=== PATIENT | female | born 1990 | race Caucasian/White ===

== ENCOUNTER 2017-08-24 04:53 | Inpatient (IN) | payer OTHER, SELFPAY | END 2017-08-26 13:00 | disposition home or self-care (01) | DRG 775 | PROVIDERS: Admitting Provider Nurse Practitioner Obstetrics & Gynecology; Family Provider Physician Assistant; Visit Provider Nurse Practitioner Obstetrics & Gynecology | DX: O70.1 Second degree perineal laceration during delivery (principal); Z37.0 Single live birth; Z3A.39 39 weeks gestation of pregnancy | CPT/HCPCS: 59409; 36415; 80305; 81001; 82800; 85014; 85018; 85025; 86850; 86900; 86901; 94761; J0595 ==

== ENCOUNTER → 2019-03-02 08:30 | Outpatient (CLI) | payer MEDICAID, SELFPAY ==
--- NOTE | 2019-03-02 08:31 | CA_ITS ---
PROCEDURE: 2-D M-mode and color Doppler study INDICATIONS FOR THE TEST: Chest pain X COPD Heart Murmur Tobacco SmokingX Palpitations Fatigue Syncope Edema Hypertension Diabetes Mellitus Rheumatic Fever SOB LOMBARDI Obesity Hyperlipidemia Family History HD Additional History H/O IV DRUG USE PATIENT INFORMATION HEIGHT: 61 WEIGHT:165 GENDER: Female B/P:116/72 2-D/M-MODE INTERPRETATION: 2-D MEASUREMENTS OBSERVED VALUES IN CMS Right Ventricular Dimension (RVDd) 2.4 Interventricular Septum (Thickness)(IVsd) .9 Left Ventricular Internal Dimensions(LVIDd) 4.0 Left Ventricular Posterior Wall (Thickness)(LVPWd) .9 Aortic Root 2.5 Aortic Cusp Separation 1.8 Left Atrial Dimensions (LAD) 3.2 2D 1. Left atrium is normal size, left ventricle is normal size, there is no concentric left ventricular hypertrophy, visually estimated ejection fraction 55% with no regional wall motion abnormality. 2. The right atrium and right ventricle are qualitatively mildly enlarged with normal contractility. 3. The aortic, mitral and tricuspid valve are grossly normal. 4. The pulmonic valve is poorly present. 5. No significant pericardial effusion noted. DOPPLER INTERROGATION: Doppler interrogation of the aortic, mitral and tricuspid valvular presence of mild mitral and tricuspid regurgitation, tricuspid regurgitation jet velocity is inadequate for calculation of the right ventricular systolic pressure, diastolic parameters are within normal range. CONCLUSION: 1. Normal left ventricular size, visually estimated ejection fraction 55% with no regional wall motion abnormality. Diastolic parameters are within normal range. 2. Qualitatively mildly enlarged right ventricle with normal contractility. 3. Mild mitral and tricuspid regurgitation 4. No significant pericardial effusion noted.
[2019-03-02 09:25] LABS: Basophils # 0.1 K/mm3 (0-0.2); Eosinophils # 0.1 K/mm3 (0.0-0.4); Eosinophils % 2.6 % (0.1-12.0); Hematocrit 40.9 % (37.0-47.0); Hemoglobin 13.4 g/dL (12.2-16.2); Lymphocytes # 2.2 K/mm3 (0.7-4.5); Lymphocytes % 42.4 % (10-50); Mean Corpuscular HGB Conc 32.8 g/dL (31.8-35.4); Mean Corpuscular Hemoglobin 28.3 pg (27.0-31.2); Mean Corpuscular Volume 86.2 fl (81-99); Mean Platelet Volume 7.3 fl (7.4-10.4); Monocytes # 0.4 K/mm3 (0.1-1.0); Monocytes % 8.6 % (1.7-9.3); Neutrophils # 2.3 K/mm3 (1.8-7.8); Neutrophils % 45.4 % (37.0-80.0); Platelet Count 284 K/mm3 (142-424); Red Blood Count 4.75 M/mm3 (4.20-5.40); Red Cell Distribution Width 13.5 % (11.5-17.5); White Blood Count 5.1 K/mm3 (4.8-10.8)
[2019-03-02 09:37] LABS: INR 0.96 (0.9-1.1)
[2019-03-02 10:56] LABS: Alanine Aminotransferase 96 U/L (12-78); Albumin Level 3.2 gm/dL (3.4-5.0); Albumin/Globulin Ratio 0.9 (1.1-1.8); Alkaline Phosphatase 84 U/L (46-116); Anion Gap 14.1 mEq/L (5-15); Aspartate Amino Transferase 39 U/L (15-37); Bilirubin,Total 0.3 mg/dL (0.2-1.0); Blood Urea Nitrogen 13 mg/dL (7-18); Calcium 8.8 mg/dL (8.5-10.1); Carbon Dioxide 24 mmol/L (21.0-32.0); Chloride 106 mmol/L (98-107); Creatinine,Serum 0.58 mg/dL (0.55-1.02); Estimated Glomerular Filt Rate 126 ml/min (>60); GFR (African American) 152 ML/MIN (>60); Globulin 3.5 gm/dl (1.3-3.2); Glucose 91 mg/dL (74-106); Potassium 4.1 mmoL/L (3.5-5.1); Sodium 140 mmol/L (136-145); Total Protein,Serum 6.7 gm/dL (6.4-8.2)
[2019-03-03 08:17] LABS: Hep B Core Ab, Total Positive (Negative); Hepatitis B Surface Antigen Negative (Negative)
[2019-03-04 17:49] LABS: HIV Screen 4th Generation wRfx Non Reactive (Non Reactive); Hep A Ab, Total Positive (Negative); Hepatitis B Surf Ab Quant 5.6 mIU/mL (Immunity>9.9); Hepatitis C Antibody >11.0 s/co ratio (0.0-0.9)
[2019-03-07 11:34] LABS: HCV Genotype Charge YES; Hepatitis C Genotype 3 (.)
== END ==
PROVIDERS: PCP Physician Assistant; Visit Provider Physician Assistant
DX: R01.1 Cardiac murmur, unspecified (principal); B18.2 Chronic viral hepatitis C
CPT/HCPCS: 36415; 80053; 85025; 85610; 86703; 86704; 86706; 86708; 87340; 87380; 87522; 87902; 93306; G0432

== ENCOUNTER 2021-12-13 18:04 | Emergency (ER) | payer MEDICAID, SELFPAY ==
[2021-12-13 18:15] VITALS: BP 138/92; PULSE 83; RESP 19; TEMP 37.1; O2SAT 98; BMI 29.0
--- NOTE | 2021-12-13 18:59 | HMH.EDUTC ---
[facility] [place] Clinical Impression: Headache Qualifiers: Headache type: unspecified Headache chronicity pattern: acute headache Intractability: not intractable Qualified Code(s): R51.9 - Headache, unspecified Disposition: Still a Patient Condition on Discharge: Fair Referrals: Melissa Frederick PA [Primary Care Provider] - Medical Decision Making - Medical Records Medical records reviewed: No: I reviewed the patient's medical records. - Philip Inquiry Pt receiving controlled substance: No Vital Signs: 12/13/21 18:15 Temperature 98.8 F Temperature Source Oral Pulse Rate [Right Brachial] 83 Respiratory Rate 19 Blood Pressure [Right Arm] 138/92 H Blood Pressure Mean [Right Arm] 107 Blood Pressure Source [Right Arm] Automatic Cuff Blood Pressure Position [Right Arm] Sitting 02 Sat by Pulse Oximetry 98 Oxygen Delivery Method Room Air Medical Decision Narrative: She was transferred to the ER due to her headache and vision changes with no known history of migraine. [facility] [place] - General Stated complaint: migraine for more than a week Time Seen by Provider: 12/13/21 19:00 Mode of Arrival: Ambulatory Source of Information: Patient Limitations: No Limitations Description of Symptoms (Recalled from Triage Doc. by RN): PATIENT C/O HEADACHE WITH BLURRED VISION X 1 WEEK. DENIES ANY HISTORY OF MIGRAINES HEENT Symptoms (Recalled from RN notes): Yes Resp Symptoms (Recalled from RN notes): No Skin Symptoms (Recalled from RN notes): No MS Symptoms (Recalled from RN notes): No Functional Status (Recalled from RN notes): WNL - History of Present Illness Provider Complaint: She states that for the past 1 week she has had a head ache. She denies any history of migraine h.a. She states this is the worst headache in her life. She states it is some better when she wakes up in the morning, but by the time she goes to bed at night it hurts and she is having vision changes (blurry vision). Pain scale 6/10 at this time. - Related Data Home Medications Medication Instructions Recorded Confirmed No Known Home Medications 04/19/19 04/19/19 Allergies Allergy/AdvReac Type Severity Reaction Status Date / Time acetaminophen [From LORTAB] Allergy Unknown Verified 03/10/19 08:47 cefaclor [From CECLOR] Allergy Unknown rash Verified 03/10/19 08:47 hydrocodone [From LORTAB] Allergy Unknown hives Verified 03/10/19 08:47 - Worker's Comp Is this a Worker's Comp case?: No [facility] History - Hepatitis A Screen Drug use history?: No High risk sexual behaviors?: No History of sexually transmitted infection?: No Currently employed?: No Childcare worker?: No Do you have indoor plumbing?: Yes Do you have electricity?: Yes Attestation statement:: This patient has been screened for Hepatitis A risk factors. I have reviewed the patient's past medical history: Yes Medical History: Reports:: Anxiety, Depression Denies:: Diabetes Mellitus Type 1, Diabetes Mellitus Type 2 Other Medical History: Reports: Other (bipolar) Comment: hep c Laterality Cases: Bilateral: Tonsillectomy Other Surgeries: Yes: Cholecystectomy Amputation: No Fractures: Yes - Social History Smoking Status: Current every day smoker Tobacco Type: cigarettes # Packs/Day (cigarettes): 1 Alcohol Intake: never Substance Use Type: marijuana, methamphetamine Occupational Status: other - Psychiatric History Pschychiatric History:: Reports:: Anxiety, Depression Family Hx:: No significant family history ROS Obtained: Yes All systems reviewed & no additional complaints - Constitutional Constitutional: Denies chills, Denies fever(s) - Eyes Eyes: Reports blurry vision, Reports change in vision, Denies eye discharge - ENT Ears, Nose, Mouth, and Throat: Denies dizziness, Denies otalgia, Denies sore throat, Denies vertigo/dizziness - Cardiovascular Cardiovascular: Denies chest pain - Respiratory Respiratory: Denies chest congestion, Denies cough, Denies
--- NOTE | 2021-12-13 19:18 | PC.NURSE ---
PATIENT SENT TO ER PER Jess MARTÍNEZ APRN FOR FURTHER EVALUATION. REPORT GIVEN TO LARISA
[2021-12-13 19:32] VITALS: BP 0/0; PULSE 0; RESP 0; TEMP -17.7; TEMP 0
== END 2021-12-13 19:32 | disposition left against medical advice (07) ==
LOC: UTC 19:18 → ER 19:19
PROVIDERS: Emergency Provider Emergency Medicine; PCP Physician Assistant
DX: R51.9 Headache, unspecified (principal)
CPT/HCPCS: 99211; G0463

== ENCOUNTER 2022-07-18 12:31 | Emergency (ER) | payer MEDICAID, SELFPAY ==
[2022-07-18 12:38] VITALS: BP 162/83; PULSE 78; RESP 19; TEMP 36.8; O2SAT 99; BMI 32.1
--- NOTE | 2022-07-18 13:26 | EXP.UTC ---
Discharge Plan Disposition Patient Disposition: Home, Self-Care Condition: Good Prescriptions Prescriptions: New azithromycin [Zithromax Z-Michael] 250 mg tablet See Rx Instructions .ROUTE .COMPLEX 5 Days Qty: 6 0RF Rx Instructions: For 250 mg dose pack: take 500 mg today (day 1), then 250 mg for 4 days (days 2-5) prednisone [prednisone] 20 mg tablet 20 mg PO BID 5 Days Qty: 10 0RF Referrals Follow up/Referrals: Provider,Referral, MD [Primary Care Provider] - See instructions Activity Restrictions/Add. Instructions Additional Instructions/Restrictions: *Monitor Temp, Over the counter Motrin or Tylenol as directed/as needed Tylenol every 4 hours and Motrin every 6 hours (as long as your family doctor has told you that you can take it) for fever or pain. and straight to ER if unable to lower temp less than 101.0 after medication given *Warm salt water gargles may help to soothe the throat *Throat Lozenges? *Warm fluids like tea with honey may help to soothe the throat? *Sleep elevated *Humidifier/Vaporizer Your throat swab was sent for culture. Those results are typically sent to your primary care. Be sure to follow up in 2-3 days with your family doctor/primary care physician if no improvement so they can review those result and treat if necessary. If you don?t have a primary care doctor, I recommend you get one but in the mean time, you will have to return to a walk in clinic Follow up IMMEDIATELY for new or worsening symptoms or no Noticeable improvement over the next 48-72 hours. 911 for difficulty breathing or swallowing Clinical Impressions Clinical Impression: Sinusitis, Bronchitis Stand Alone Forms Stand Alone Forms: Work/School Release Instructions Patient Instructions: DI for Sinusitis, Sinusitis Discharge ED Provider: Yolie Joe [facility] [place] General Stated complaint: cough, chest and backs hurting, SOA Mode of Arrival: Ambulatory Source of Information: Patient Limitations: No Limitations Time Seen by Provider: 07/18/22 13:26 Description of Symptoms (Recalled from Triage Doc. by RN): COUGH X 2 WEEKS, HAS TAKEN MULTIPLE OTC MEDS WITHOUT IMPROVEMENT History of Present Illness Provider Complaint: Patient states that she has been having cough, sinus congestion and pressure and feels like it is moving into her chest over the last 2 weeks States that today she was still coughing so she came in to get checked Related Data Previous Rx's Medication Instructions Recorded azithromycin 250 mg tablet See Rx Instructions PO .COMPLEX 5 07/18/22 (Zithromax Z-Michael) days #6 tabs prednisone 20 mg tablet 20 mg PO BID 5 days #10 tabs 07/18/22 Allergies Allergy/AdvReac Type Severity Reaction Status Date / Time acetaminophen [From LORTAB] Allergy Unknown Verified 07/18/22 13:39 cefaclor [From CECLOR] Allergy Unknown rash Verified 07/18/22 13:39 hydrocodone [From LORTAB] Allergy Unknown hives Verified 07/18/22 13:39 [facility] Medical History (Updated 07/18/22 @ 13:45 by Yolie Joe APRN) Bipolar disorder Hepatitis C Social History Smoking Status: Current every day smoker tobacco type: cigarettes packs per day: 1 alcohol intake: never substance use type: marijuana and methamphetamine current occupational status: other Travel in the last 8 weeks: None ROS Obtained: Yes All systems reviewed & no additional complaints except as documented and Yes Systems reviewed as appropriate & no additional complaints except as documented Constitutional Constitutional: Reports system reviewed and no additional complaints, except as documented and Reports as per HPI ENT Ears, Nose, Mouth, and Throat: Reports system reviewed and no additional complaints, except as documented, Reports as per HPI, Reports sinus pain and Reports sinus pressure Cardiovascular Cardiovascular: Reports system reviewed and no additional complaint
[2022-07-18 13:36] VITALS: BP 162/83; PULSE 78; RESP 19; TEMP 36.8; O2SAT 99; BMI 26.3
[2022-07-18 13:49] VITALS: BP 162/83; PULSE 78; RESP 19; TEMP 36.8
== END 2022-07-18 13:52 | disposition home or self-care (01) ==
PROVIDERS: Emergency Provider Nurse Practitioner
DX: J40 Bronchitis, not specified as acute or chronic (principal); J32.9 Chronic sinusitis, unspecified
CPT/HCPCS: 99212; G0463

== ENCOUNTER 2023-06-03 12:06 | Emergency (ER) | payer MEDICAID, SELFPAY ==
[2023-06-03 12:15] VITALS: BP 138/88; PULSE 87; RESP 18; TEMP 36.9; O2SAT 98; BMI 32.1
--- NOTE | 2023-06-03 12:39 | EXP.UTC ---
Discharge Plan Disposition Patient Disposition: Home, Self-Care Condition: Good Prescriptions Prescriptions: New ondansetron 4 mg Tablet,Disintegrating 4 mg PO Q8H PRN (Reason: Nausea) Qty: 12 0RF No Action norgestimate-ethinyl estradiol [Sprintec (28)] 0.25-35 mg-mcg tablet 1 tab PO DAILY Qty: 84 11RF Referrals Follow up/Referrals: Provider,Referral, MD [Primary Care Provider] - See instructions Activity Restrictions/Add. Instructions Additional Instructions/Restrictions: Drink plenty of fluids. Take tylenol or ibuprofen for pain or fever. Take the medications as directed. Follow up with your regular doctor. GO TO THE ER FOR ANY WORSENING SYMPTOMS Clinical Impressions Clinical Impression: Acute viral syndrome Stand Alone Forms Stand Alone Forms: Work/School Release Instructions Patient Instructions: DI for Viral Syndrome, Ondansetron Discharge ED Provider: Yeyo Ramon [facility] General Stated complaint: vominting, facial burning and chest hurts Mode of Arrival: Ambulatory Source of Information: Patient Limitations: No Limitations Time Seen by Provider: 06/03/23 12:38 Description of Symptoms (Recalled from Triage Doc. by RN): Pt stated that she's been vomiting, QUESADA, face burning when this is occuring her chest started to burn as well. HEENT Symptoms (Recalled from RN notes): No Resp Symptoms (Recalled from RN notes): No Skin Symptoms (Recalled from RN notes): No MS Symptoms (Recalled from RN notes): No Functional Status (Recalled from RN notes): n/a History of Present Illness Provider Complaint: She states that for the past 2 days she has had fatigue, chills, malaise, and n/v/d. Related Data Previous Rx's Medication Instructions Recorded norgestimate 0.25 mg-ethinyl 1 tab PO DAILY #84 tabs 02/23/23 estradiol 35 mcg tablet (Sprintec (28)) ondansetron 4 mg disintegrating 4 mg PO Q8H PRN Nausea #12 tabs 06/03/23 tablet Allergies Allergy/AdvReac Type Severity Reaction Status Date / Time acetaminophen [From LORTAB] Allergy Unknown Verified 06/03/23 12:35 cefaclor [From CECLOR] Allergy Unknown rash Verified 06/03/23 12:35 hydrocodone [From LORTAB] Allergy Unknown hives Verified 06/03/23 12:35 Worker's Comp Is this a Worker's Comp case?: No [facility] Disclaimer: The information contained in this section may have been updated after the patient was seen, as this information can be updated by other users. Medical History (Updated 06/03/23 @ 13:20 by Yeyo Ramon APRN) Bipolar disorder Hepatitis C Surgical History History of tonsillectomy S/P cholecystectomy [place] teeth extracted Family History Grandmother Cancer both grandmothers: skin and throat Social History Smoking Status: Current every day smoker tobacco type: e-cigarettes alcohol intake: never substance use type: marijuana and methamphetamine current occupational status: other Travel in the last 8 weeks: None ROS Obtained: Yes All systems reviewed & no additional complaints except as documented Constitutional Constitutional: Reports chills and Reports fever(s) Eyes Eyes: Denies eye discharge ENT Ears, Nose, Mouth, and Throat: Reports as per HPI Cardiovascular Cardiovascular: Denies chest pain Respiratory Respiratory: Denies chest congestion and Reports cough Gastrointestinal Gastrointestingal: Reports nausea; Denies abdominal pain, constipation, cramping, diarrhea or vomiting Musculoskeletal Musculoskeletal: Denies arthralgias Integumentary/Breasts Skin/Breast: Denies rash Neurologic Neurologic: Denies paresthesias Physical Exam General General appearance: alert and in no apparent distress Head Head exam: atraumatic, normocephalic and normal inspection Eye Eye exam: Present normal appearance, PERRL and EOMI ENT
[2023-06-03 13:20] LABS: UTC Influenza A Antigen Negative (Negative)
[2023-06-03 13:21] LABS: UTC Influenza B Antigen Negative (Negative)
[2023-06-03 13:27] VITALS: BP 138/88; PULSE 87; RESP 18; TEMP 36.9; O2SAT 98
== END 2023-06-03 13:27 | disposition home or self-care (01) ==
PROVIDERS: Emergency Provider Nurse Practitioner Family
DX: R11.2 Nausea with vomiting, unspecified (principal); R68.83 Chills (without fever); R53.81 Other malaise; B34.9 Viral infection, unspecified; F17.290 Nicotine dependence, other tobacco product, uncomplicated; F31.9 Bipolar disorder, unspecified; B19.20 Unspecified viral hepatitis C without hepatic coma
CPT/HCPCS: 87635; 87804; 99212; 99214; G0463

== ENCOUNTER 2023-07-22 11:46 | Emergency (ER) | payer MEDICAID, SELFPAY ==
[2023-07-22 12:10] VITALS: BP 166/108; PULSE 86; RESP 20; TEMP 36.9; O2SAT 98; BMI 29.8
--- NOTE | 2023-07-22 12:28 | EXP.UTC ---
Discharge Plan Disposition Patient Disposition: Home, Self-Care Condition: Good Prescriptions Prescriptions: New polymyxin B sulf-trimethoprim 10,000 unit- 1 mg/mL drops 2 drp ophthalmic (eye) Q6 7 Days Qty: 10 0RF Rx Instructions: left eye while awake; do not exceed 6 doses in 24 hours Referrals Follow up/Referrals: Provider,Referral, [Primary Care Provider] - See instructions Activity Restrictions/Add. Instructions Additional Instructions/Restrictions: Use drops as prescribed Wash hands before and after applying drops to eye Follow up with your Eye Doctor if no improvement or any worsening of symptoms Return if needed Follow up with your Family Doctor for re-evaluation of your blood pressure as discussed Clinical Impressions Clinical Impression: Conjunctivitis Qualifiers: Conjunctivitis type: unspecified Laterality: left Qualified Code(s): H10.9 - Unspecified conjunctivitis Instructions Patient Instructions: Conjunctivitis, DI for Conjunctivitis Discharge ED Provider: Yolie Joe [facility] [place] General Stated complaint: possible pink eye Mode of Arrival: Ambulatory Source of Information: Patient Limitations: No Limitations Time Seen by Provider: 07/22/23 12:28 Description of Symptoms (Recalled from Triage Doc. by RN): PATIENT C/O REDNESS, DRAINAGE, ITCHING AND BURNING TO LEFT EYE SINCE THIS MORNING HEENT Symptoms (Recalled from RN notes): Yes Resp Symptoms (Recalled from RN notes): No Skin Symptoms (Recalled from RN notes): No MS Symptoms (Recalled from RN notes): No Functional Status (Recalled from RN notes): WNL History of Present Illness Provider Complaint: Patient states that she woke up with her left eye matted shut, redness, thick yellowish green drainage and feeling irritated States that she hasnt got anything in it but thinks she may have pink eye Related Data Previous Rx's Medication Instructions Recorded polymyxin B sulfate 10,000 2 drp ophthalmic (eye) Q6 7 days 07/22/23 unit-trimethoprim 1 mg/mL eye drops #10 mL Allergies Allergy/AdvReac Type Severity Reaction Status Date / Time acetaminophen [From LORTAB] Allergy Unknown Verified 06/03/23 12:35 cefaclor [From CECLOR] Allergy Unknown rash Verified 06/03/23 12:35 hydrocodone [From LORTAB] Allergy Unknown hives Verified 06/03/23 12:35 Worker's Comp Is this a Worker's Comp case?: No [facility] Disclaimer: The information contained in this section may have been updated after the patient was seen, as this information can be updated by other users. Medical History (Updated 07/22/23 @ 12:36 by Yolie Joe APRN) Bipolar disorder Hepatitis C Surgical History History of tonsillectomy S/P cholecystectomy [place] teeth extracted Family History Grandmother Cancer both grandmothers: skin and throat Social History Smoking Status: Current every day smoker tobacco type: e-cigarettes alcohol intake: never substance use type: marijuana and methamphetamine current occupational status: other Travel in the last 8 weeks: None ROS Obtained: Yes All systems reviewed & no additional complaints except as documented and Yes Systems reviewed as appropriate & no additional complaints except as documented Constitutional Constitutional: Reports system reviewed and no additional complaints, except as documented, Reports as per HPI and Denies fever(s) Eyes Eyes: Reports system reviewed and no additional complaints, except as documented, Reports as per HPI, Reports eye discharge and Reports irritation ENT Ears, Nose, Mouth, and Throat: Reports system reviewed and no additional complaints, except as documented and Reports as per HPI Cardiovascular Cardiovascular: Reports system reviewed and no additional complaints, except as documented and Reports as per HPI Respiratory Res
[2023-07-22 12:38] VITALS: BP 166/108; PULSE 86; RESP 20; TEMP 36.9; O2SAT 98
== END 2023-07-22 12:40 | disposition home or self-care (01) ==
PROVIDERS: Emergency Provider Nurse Practitioner
DX: H10.32 Unspecified acute conjunctivitis, left eye (principal); F17.210 Nicotine dependence, cigarettes, uncomplicated
CPT/HCPCS: 99212; 99214; G0463

== ENCOUNTER 2025-08-31 08:35 | Emergency (ER) | payer SELFPAY ==
[2025-08-31 08:48] VITALS: BP 171/112; PULSE 88; RESP 18; TEMP 36.5; O2SAT 98; BMI 34.4
--- NOTE | 2025-08-31 08:52 | ED_ITS ---
Discharge Plan Disposition Patient Disposition: Home, Self-Care Prescriptions Prescriptions: New amoxicillin-pot clavulanate 875-125 mg tablet 1 tab PO BID 7 Days Qty: 14 0RF prednisone 10 mg tablet 10 mg PO DIRECTED Qty: 12 0RF Rx Instructions: Day 1: Take 40 mg (4 tabs) Day 2: Take 30 mg (3 tabs) Day 3: Take 20 mg (2 tabs) Day 4: Take 20 mg (2 tabs) Day 5: Take 10 mg (1 tab) No Action polymyxin B sulf-trimethoprim 10,000 unit- 1 mg/mL drops 2 drp ophthalmic (eye) Q6 7 Days Qty: 10 0RF Rx Instructions: left eye while awake; do not exceed 6 doses in 24 hours Referrals Follow up/Referrals: Provider,Referral, MD [Primary Care Provider, Medical] - See instructions Activity Restrictions/Add. Instructions Additional Instructions/Restrictions: You likely have a viral infection causing your sinus issues. Take the steroids as prescribed. You are also found to have a urinary tract infection. Take the antibiotics as prescribed. I encourage you to follow-up with your MOLD REPAIRER regarding your vaginal bleeding. If you develop any new or worsening symptoms, or if you become concerned for your help for any reason, return to the emergency department for evaluation Clinical Impressions Clinical Impression: Sinusitis, Abnormal uterine bleeding, Urinary tract infection Print Language Print Language: [place] Discharge ED Provider: Gus Bustos Adult HPI General Chief complaint: Vaginal Bleeding Stated complaint: losing voice, sore throat, heavy bleeding, weak Time Seen by Provider: 08/31/25 08:46 History of Present Illness HPI narrative: Analy Orellana is a 35y female with a history of bipolar disorder, tonsillectomy, cholecystectomy who presents to the emergency department for complaints of nasal congestion and sore throat for the past 6 days. Patient also states that she has a history of irregular periods. She finished her normal period that lasted approximately 7 days ago and then restarted her period approximately 2 to 3 days ago and has been bleeding heavily since then. She states that she has gone through multiple pairs of underwear, pants and pads. She does not know if she is currently. She denies any abdominal pain or back pain. She denies any dysuria. She denies any chest pain Related Data Previous Rx's ?Medication ?Instructions ?Recorded polymyxin B sulfate 10,000 2 drp ophthalmic (eye) Q6 7 days 07/22/23 unit-trimethoprim 1 mg/mL eye drops #10 mL amoxicillin 875 mg-potassium 1 tab PO BID 7 days #14 t abs 08/31/25 clavulanate 125 mg tablet prednisone 10 mg tablet 10 mg PO DIRECTED #12 tab s 08/31/25 Allergies Allergy/AdvReac Type Severity Reaction Status Date / Time acetaminophen (From LORTAB) Allergy Unknown Verified 06/03/23 12:35 cefaclor (From [facility]) Allergy Unknown rash Verified 06/03/23 12:35 hydrocodone (From LORTAB) Allergy Unknown hives Verified 06/03/23 12:35 [facility] Disclaimer: The information contained in this section may have been updated after the patient was seen, as this information can be updated by other users. Medical History (Updated 08/31/25 @ 11:08 by Gus Bustos MD) Hepatitis C Bipolar disorder Surgical History [place] teeth extracted History of tonsillectomy S/P cholecystectomy Family History Grandmother Cancer both grandmothers: skin and throat Social History Smoking Status: Former smoker tobacco type: e-cigarettes alcohol intake: never substance use type: marijuana and methamphetamine current occupational status: other Travel in the last 8 weeks?: None Have you lived/traveled outside [place] in past 30 days?: No Contact w/someone who lives/traveled outside US past 30 days?: No Exposure to someone with infectious disease in past 14 days?: No Do you have a fever (greater than 100.4 F or 38 C)?: No Have you tested positive for COVID-19?: No Exposed to someone with COVID-19 in past 14 days?: No Do you have a sore throat?: Yes Do you have a cough?: No Do you have any weakness?: No Do you have any diarrhea?: No Are you experiencing any unusual bleeding?: No Do you have any muscle aches/pain?: No Do you have any abdominal pain?: No Are you experiencing loss of taste or smell?: No Other Medical History Have you received the Flu Vaccine for this season: No Have you received the Pneumonia Vaccine: No ROS Obtained: Yes Systems reviewed as appropriate & no additional complaints except as documented Physical Exam General General appearance: alert and in no apparent distress Head Head exam: atraumatic Eye Eye exam: Present normal appearance ENT ENT exam: Present normal external ear exam and other (nasal congestion) Neck Neck exam: Present full ROM Chest Chest inspection: Present symmetric chest wall rise Respiratory Respiratory exam: Present normal lung sounds bilaterally; Absent respiratory distress, wheezes or stridor Cardiovascular Cardiovascular exam: Present regular rate and normal rhythm Abdominal Exam Abdominal exam: Present soft; Absent tenderness or guarding Extremities Exam Extremities exam: Present normal inspection Back Exam Back exam: Present normal inspection Neurological Exam Neurological exam: Present alert and oriented X3 Psychiatric Psychiatric exam: Present normal affect Skin Skin exam: Present warm and dry Medical Decision Making Medical Records Screening: Per USPSTF and CDC recommendations, given the prevalence of disease in our region, it is our hospital?s policy to screen for HIV and viral Hepatitis for all patients aged 18 and over and those with ongoing risk factors. Philip Inquiry Pt receiving controlled substance: No Vital Signs: 08/31/25 08:48 08/31/25 09:00 08/31/25 09:15 Temperature 97.7 F Temperature Source Oral Pulse Rate 85 84 Pulse Rate [Right] 88 Respiratory Rate 18 Blood Pressure 175/108 H Blood Pressure [Right Arm] 171/112 H Blood Pressure Mean [Right Arm] 131 Blood Pressure Source [Right Arm] Automatic Cuff Blood Pressure Position [Right Arm] Sitting 02 Sat by Pulse Oximetry 98 97 97 Oxygen Delivery Method Room Air 08/31/25 10:32 08/31/25 11:00 08/31/25 11:38 Temperature 98.3 F Temperature Source Oral Pulse Rate 68 83 78 Pulse Rate [Right] Respiratory Rate 18 Blood Pressure 158/106 H 165/121 H 158/106 H Blood Pressure [Right Arm] Blood Pressure Mean [Right Arm] Blood Pressure Source [Right Arm] Blood Pressure Position [Right Arm] 02 Sat by Pulse Oximetry 98 98 Oxygen Delivery Method Room Air Lab Data Lab Results 08/31/25 08:55: WBC 7.8, RBC 4.66, Hgb 13.7, Hct 39.5, MCV 84.8, MCH 29.4, MCHC 34.7, RDW 12.9, Plt Count 271, MPV 9.6, Neut % (Auto) 63.7, Lymph % (Auto) 24.6, Carver % (Auto) 8.2, Eos % (Auto) 2.7, Baso % (Auto) 0.5, Neut # (Auto) 5.0, Lymph # (Auto) 1.9, Carver # (Auto) 0.6, Eos # (Auto) 0.2, Baso # (Auto) 0.0, Sodium 141, Potassium 3.6, Chloride 103, Carbon Dioxide 28, Anion Gap 13.6, BUN 10, C reatinine 0.50 L, Estimated Creat Clear 209, Estimated GFR 142, Est GFR ( Amer) 172, Glucose 109 H, Calcium 8.5, Total Bilirubin 0.5, AST 36, ALT 37, Alkaline Phosphatase 81, Total Protein 7.2, Albumin 4.0, Globulin 3.2, Albumin/Globulin Ratio 1.3, TSH 1.89, Free T4 1.18, Serum HCG, Qual Negative, SARS-CoV-2 (PCR) Not detected, HCV Ab RISA w/Rflx PCR Qn Reactive, HIV Ag/Ab Combo Qual Negative, Influenza A Untype (PCR) Not detected, Influenza Type B (PCR) Not detected 08/31/25 09:27: Urine Color Red, Urine Appearance Turbid, Urine pH 7.0, Ur Specific [place] 1.015, Urine Protein 3+ A, Urine Glucose (UA) Trace, Urine Ketones 1+, Urine Blood 3+ A, Urine Nitrate Positive A, Urine Bilirubin Negative, Urine Urobilinogen >=8.0, Ur Leukocyte Esterase 2+ A, Urine RBC Tntc, Urine WBC Not Reportable, Ur Squamous Epith Cells Not Reportable, Urine Bacteria Not Reportable 08/31/25 08:55 08/31/25 08:55 Orders (Tests/Meds): ED MEDICATIONS Discontinued Medications Generic Name Dose Route Start Last Admin Trade Name Freq PRN Reason Stop Dose Admin Ketorolac Tromethamine 15 mg 08/31/25 08:51 08/31/25 09:01 Ketorolac 15mg/Ml Vial IV 08/31/25 08:52 15 mg ONCE ONE Administration ORDERS Category Date Time Status CXR --portable [XR chest portable] Stat Exams 08/31/25 08:54 Completed CBC w/Auto Diff [Complete Blood Count Auto Diff] Stat Lab 08/31/25 08:55 Completed CMP [Comprehensive Metabolic Panel] Stat Lab 08/31/25 08:55 Completed Free T4 (Free Thyroxine) Stat Lab 08/31/25 08:55 Completed HCV RNA PCR, Quant Stat Lab 08/31/25 08:55 Received HIV Combo Stat Lab 08/31/25 08:55 Completed Hepatitis C Ab Qual. W/ RFX Stat Lab 08/31/25 08:55 Completed Rapid PCR Covid and Flu A/B Stat Lab 08/31/25 08:55 Completed Serum [HCG Qualitative, Serum] Stat Lab 08/31/25 08:55 Completed TSH [Thyroid Stimulating Hormone] Stat Lab 08/31/25 08:55 Completed UA [Urinalysis and Microscopic] Stat Lab 08/31/25 09: Completed Urine Culture Stat Micro 08/31/25 09:27 Received Medical Decision Narrative: Analy Orellana is a 35y female with a history of bipolar disorder, tonsillectomy, cholecystectomy who presents to the emergency department for complaints of nasal congestion and sore throat for the past 6 days. Patient also states that she has a history of irregular periods. She finished her normal period that lasted approximately 7 days ago and then restarted her period approximately 2 to 3 days ago and has been bleeding heavily since then. She states that she has gone through multiple pairs of underwear, pants and pads. She does not know if she is currently. She denies any abdominal pain or back pain. She denies any dysuria. She denies any chest pain. On arrival, patient is hemodynamically stable, breathing comfortably on room air in no distress, maintaining appropriate oxygen saturation. Afebrile. Physical exam, as stated above, revealed nontoxic-appearing female in no distress. She has nasal congestion. Breath sounds are clear bilaterally. Abdomen is soft, nontender nondistended. Remainder of her exam is grossly unremarkable as well. Differential diagnosis includes, but is not limited to: Viral respiratory illness, sinusitis, urinary tract infection, pneumonia, abnormal uterine bleeding, menorrhagia, ectopic , among others. The most morbid conditions were considered and workup was based on these. Will obtain hematologic labs, chest x-ray, urinalysis, chest x-ray. Chest x-ray interpreted by me personally. No focal consolidation, no pneumothorax, no widened mediastinum, no enlargement of the cardiac silhouette. Unremarkable chest x-ray. See radiology report for details. Laboratory studies show no leukocytosis, no anemia with hemoglobin of 13.7, hematocrit 39.5, no NOHEMI, electrolytes within normal limits, liver enzymes and bilirubin within normal limits. Thyroid studies within normal limits. Negative test. Urinalysis shows 3+ protein, too numerous to count red blood cells and nitrate positivity and leukocyte esterase positivity. Unable to report white blood cell count due to too numerous to red blood cell count consistent with a UTI. It is unclear where the blood is originating, but likely vaginal in origin but could also be from hemorrhagic cystitis. Negative COVID/flu swab. I do feel the patient's upper respiratory symptoms are likely viral in nature and should improve over time. Patient likely has a urinary tract infection given her urine studies would benefit from antibiotics. To cover both possible bacterial sinusitis as well as UTI, will prescribe course of Augmentin and also will give a short steroid taper. I did encourage her to follow-up with her primary care doctor and to discuss her abnormal uterine bleeding with her paper twister tender. She is noted to have previously been on oral contraceptives for abnormal uterine bleeding but has not been taking them for the past several months and I do feel that this is likely the source of her bleeding and would benefit from gynecologic follow-up, but no indication for emergent gynecology consultation given she is not anemic and does not appear to be .. Return precautions were given. All questions were answered. She demonstrated understanding and was in agreement this plan. She was then discharged from the emergency department in stable condition. Critical Care Critical Care Time Critical Care Time: No
--- NOTE | 2025-08-31 08:54 | XR_ITS ---
FINAL REPORT CLINICAL HISTORY: Nonspecific cough COMPARISON: 10/26/2018 FINDINGS: The heart size is normal. The mediastinum is normal. There is no focal infiltrate or edema. There are no pleural effusions. There is no pneumothorax. There is no osseous abnormality. IMPRESSION: No acute cardiopulmonary process Reviewed, Interpreted and Dictated by David Cerna MD Transcribed by Bree Lemon Authenticated and [facility]
[2025-08-31 09:00] VITALS: BP 175/108; PULSE 85; O2SAT 97
[2025-08-31 09:00] LABS: Coronavirus 19, PCR Not Detected (NotDetected); Influenza A, PCR Not Detected (NotDetected); Influenza B, PCR Not Detected (NotDetected)
[2025-08-31] MEDS: KETOROLAC 15MG/ML VIAL 15 MG IV (09:01)
[2025-08-31 09:04] LABS: Hematocrit 39.5 % (37.0-47.0); Hemoglobin 13.7 g/dL (12.2-16.2); Immature Granulocytes % 0.3 %; Mean Corpuscular HGB Conc 34.7 g/dL (31.8-35.4); Mean Corpuscular Hemoglobin 29.4 pg (27.0-31.2); Mean Corpuscular Volume 84.8 fl (81-99); Nucleated Red Blood Cells % 0 %; Platelet Count 271 K/mm3 (142-424); Red Blood Count 4.66 M/mm3 (4.20-5.40); Red Cell Distribution Width-SD 39.6 fL; White Blood Count 7.8 K/mm3 (4.8-10.8)
[2025-08-31 09:15] VITALS: PULSE 84; O2SAT 97
[2025-08-31 09:19] LABS: Albumin Level 4.0 g/dl (3.5-5.0); Chloride 103 mmol/L (98-107); Potassium 3.6 mmoL/L (3.5-5.1); Sodium 141 mmol/L (136-145)
[2025-08-31 09:22] LABS: Alanine Aminotransferase 37 U/L (12-78); Albumin/Globulin Ratio 1.3 (1.1-1.8); Alkaline Phosphatase 81 U/L (38-126); Anion Gap 13.6 mEq/L (5-15); Aspartate Amino Transferase 36 U/L (14-36); Bilirubin,Total 0.5 mg/dl (0.2-1.3); Blood Urea Nitrogen 10 mg/dl (7-17); Carbon Dioxide 28 mmol/L (22.0-30.0); Creatinine Clearance Estimated 209 mL/min (50-200); Creatinine,Serum 0.50 mg/dl (0.52-1.04); Estimated Glomerular Filt Rate 142 ml/min (>60); GFR (African American) 172 ML/MIN (>60); Globulin 3.2 g/dL (1.3-3.2); Total Protein,Serum 7.2 g/dl (6.3-8.2)
[2025-08-31 09:23] LABS: Calcium 8.5 mg/dl (8.4-10.2); Glucose 109 mg/dl (74-100)
[2025-08-31 09:40] LABS: Microscopic, Urine URINE MICROSCOPIC (MICROSCOPIC)
[2025-08-31 09:40] LABS: Free T4 (Free Thyroxine) 1.18 ng/dl (0.78-2.19)
[2025-08-31 09:46] LABS: Bilirubin,Urine Negative (Negative); Glucose,Urine (UA) TRACE (Negative); Ketones,Urine 1+ (Negative); Leukocyte Esterase,Urine 2+ (Negative); PH,Urine 7.0 (5.0-8.5); Protein,Urine 3+ (Negative); Specific Gravity, Urine 1.015 (1.005-1.030); Urobilinogen,Urine >=8.0 EU/dl (0.2)
[2025-08-31 09:48] LABS: Color,Urine Red (Yellow)
[2025-08-31 09:52] LABS: Thyroid Stimulating Hormone 1.89 uIU/mL (0.465-4.68)
[2025-08-31 09:54] LABS: HCG Qualitative, Serum Negative (Negative)
[2025-08-31 10:14] LABS: RBC,Urine TNTC #/hpf (0-3)
[2025-08-31 10:14] LABS: Hepatitis C Ab Qual. W/ RFX REACTIVE (Negative)
[2025-08-31 10:32] VITALS: BP 158/106; PULSE 68; O2SAT 98
[2025-08-31 11:00] VITALS: BP 165/121; PULSE 83; O2SAT 98
[2025-08-31 11:38] VITALS: BP 158/106; PULSE 78; RESP 18; TEMP 36.8; O2SAT 98
== END 2025-08-31 11:38 | disposition home or self-care (01) ==
PROVIDERS: Emergency Provider Student in an Organized Health Care Education/Training Program
DX: N39.0 Urinary tract infection, site not specified (principal); N93.9 Abnormal uterine and vaginal bleeding, unspecified; J01.90 Acute sinusitis, unspecified; Z87.891 Personal history of nicotine dependence; N92.0 Excessive and frequent menstruation with regular cycle
CPT/HCPCS: 71045; 80053; 81001; 84439; 84443; 84703; 85025; 86803; 87086; 87389; 87522; 87636; 96374; 99284; 99285; J1885